=== PATIENT | female | born 1975 | race Caucasian/White ===

== ENCOUNTER 2020-08-31 12:44 | Emergency (ER) | payer OTHER ==
[~2020-08-31] VITALS: Ht 160 cm; Wt 122.5 kg
[2020-08-31] MEDS ORDERED: BUSPIRONE HCL10 MG (12:55)
[2020-08-31] MEDS ORDERED: SPIRONOLACTONE50 MG (12:55)
[2020-08-31] MEDS ORDERED: PROZAC10 M1 (12:55)
[2020-08-31] MEDS ORDERED: NEURONTIN 300M300 M2 PO (12:56)
[2020-08-31] MEDS ORDERED: CEPHALEXIN500 MG PO (13:59)
[2020-08-31] MEDS ORDERED: LISINOPRIL10 MG PO (13:59)
[2020-08-31] MEDS ORDERED: BACTRIM DS TAB1 EACH PO (13:59)
[2020-08-31 14:08] VITALS: BP 184/94
== END 2020-08-31 14:09 | disposition home or self-care (01) ==
LOC: M.ERS 12:44
DX: L02.214 Cutaneous abscess of groin (principal); I10 Essential (primary) hypertension; Z88.5 Allergy status to narcotic agent; Z90.710 Acquired absence of both cervix and uterus

== ENCOUNTER 2020-09-02 21:12 | Emergency (ER) | payer OTHER ==
[~2020-09-02] VITALS: Ht 160 cm; Wt 122.5 kg
[~2020-09-02 21:12] MED LIST: BACTRIM DS TAB1 EACH PO; BUSPIRONE HCL10 MG; CEPHALEXIN500 MG PO; LISINOPRIL10 MG PO; NEURONTIN 300M300 M2 PO; PROZAC10 M1; SPIRONOLACTONE50 MG
[2020-09-02 22:12] LABS: ABSOLUTE EOSINOPHILS 0.2 thou/uL (0.0-0.7); ABSOLUTE LYMPHOCYTES 2.7 thou/uL (0.8-5.3); ABSOLUTE MONOCYTES 0.8 thou/uL (0.0-1.2); ABSOLUTE NEUTROPHILS 6.7 thou/uL (1.6-8.1); BASOPHILS 0.2 %; HEMOGLOBIN 14.2 gm/dL (12.0-15.0); LYMPHOCYTES 25.6 %; MCH 28.6 pg (26.0-34.0); MCHC 34.5 g/dL (28.0-37.0); MCV 82.8 fL (80.0-100.0); MONOCYTES 7.8 %; MPV 7.1 fl. (7.2-11.1); NUCLEATED RBCS 0 /100WBC; PLATELET COUNT* 304 thou/uL (150-400); POLYS 64.4 %; RBC 4.95 mil/uL (4.20-5.00); RDW-CV 14.6 % (10.5-14.5); WBC 10.5 thou/uL (4.0-11.0)
[2020-09-02 22:22] LABS: CALCIUM 8.3 mg/dL (8.5-10.1); CREATININE 0.9 mg/dL (0.6-1.3); POTASSIUM 3.5 mmol/L (3.5-5.1)
[2020-09-02 22:27] LABS: ALBUMIN 3.2 g/dL (3.4-5.0); TOTAL BILIRUBIN 0.3 mg/dL (<0.1-1.0); TOTAL PROTEIN 7.4 g/dL (6.4-8.2)
[2020-09-02 23:12] VITALS: BP 126/64
== END 2020-09-02 23:13 | disposition home or self-care (01) ==
LOC: M.ERS 21:12
PROVIDERS: Personal Emergency Response Attendant
DX: T88.1XXA Other complications following immunization, not elsewhere classified, initial encounter (principal); I10 Essential (primary) hypertension; Z88.5 Allergy status to narcotic agent; Z79.899 Other long term (current) drug therapy; Z90.710 Acquired absence of both cervix and uterus

== ENCOUNTER 2021-01-21 14:22 | Emergency (ER) | payer OTHER ==
[~2021-01-21] VITALS: Ht 157.5 cm; Wt 117.9 kg
[2021-01-21 15:03] LABS: INFLUENZA A ANTIGEN Negative (Negative); INFLUENZA B ANTIGEN Negative (Negative)
[2021-01-21] MEDS ORDERED: TESSALON PERLE100 MG PO (15:10)
[2021-01-21] MEDS ORDERED: ZPAK PO (15:10)
[2021-01-21] MEDS ORDERED: PREDNISONE 20 M20 M1 PO (15:10)
[2021-01-21] MEDS ORDERED: VENTOLIN HFA 1818 GM INH (15:10)
[2021-01-21 15:19] VITALS: BP 136/86
--- NOTE | 2021-01-22 09:58 | EKG ---
[place] [address] ELECTROCARDIOGRAM REPORT Name: FRANCISCOADRIANNA Hermelinda Room: [facility]#: [id number] Admission: 01/21/21 Attend Phys: Discharge: 01/21/21 Date of : 79 Date of Service: 01/21/21 1425 Report #: [id number] THIS REPORT FOR: //name// [facility] ED Test Date: 2021-01-21 Test Time: 14:25:52 Pat Name: ADRIANNA SINGH Department: Room: Gender: Manager Mail: : 1975 Requested By: Luther Chase Order Number: [id number] MD: Jeremy Foss Measurements Intervals [place] Rate: 81 P: 65 MT: 136 QRS: 49 QRSD: 94 T: 29 QT: 385 QTc: 447 Interpretive Statements Sinus rhythm Probable left atrial enlargement Low voltage, precordial leads No previous ECG available for comparison Electronically Signed On 01-22-2021 9:58:30 NEWS CLERK by Jeremy Foss [email or web address] <ELECTRONICALLY SIGNED> By: Jeremy Foss MD, [facility] 01/22/21 0958 1425 1425 Jeremy Foss MD, [facility] /EPI
== END 2021-01-21 15:19 | disposition home or self-care (01) ==
LOC: M.ERS 14:22
PROVIDERS: Family Medicine
DX: J40 Bronchitis, not specified as acute or chronic (principal); Z20.822 Contact with and (suspected) exposure to COVID-19; I10 Essential (primary) hypertension; Z88.5 Allergy status to narcotic agent; Z79.899 Other long term (current) drug therapy; Z90.710 Acquired absence of both cervix and uterus